=== PATIENT | male | born 1945 | race Caucasian/White ===

== ENCOUNTER 2023-09-24 09:27 | Outpatient (CLI) | payer MEDICARE, BC ==
[2023-09-24 12:53] LABS: Hematocrit 37.3 % (38.8-50.0); Hemoglobin 11.8 g/dL (13.5-17.5)
[2023-09-24 13:35] LABS: Anion Gap 17 mmol/L (10-20); BUN (Urea Nitrogen) 16 mg/dL (8.4-25.7); Calc. Creatinine Clearance 0 mL/min (70-130); Calcium 8.9 mg/dL (7.8-10.44); Carbon Dioxide 27 mmol/L (23-31); Chloride 100 mmol/L (98-107); Estimated GFR 59; Glucose 179 mg/dL (83-110); Potassium 3.7 mmol/L (3.5-5.1); Sodium 140 mmol/L (136-145)
== END 2023-09-24 09:28 | disposition home or self-care (01) ==
LOC: CSHLAB 09:27
PROVIDERS: ATTEND Otolaryngology Otolaryngic Allergy
DX: Z01.818 Encounter for other preprocedural examination (principal); G47.33 Obstructive sleep apnea (adult) (pediatric)
CPT/HCPCS: 80048; 85014; 85018; 93005; 93010

== ENCOUNTER 2025-05-12 16:48 | Outpatient (CLI) | payer OTHER | END 2025-05-12 16:49 | disposition home or self-care (01) | LOC: CSHMRI 16:48 | PROVIDERS: ATTEND Hospitalist | DX: R56.9 Unspecified convulsions (principal) | CPT/HCPCS: 70551 ==